=== PATIENT | male | born 1950 ===

== ENCOUNTER 2019-09-16 18:25 | Emergency (ER) | payer MEDICARE, BC ==
[~2019-09-16 18:25] MED LIST: Sodium Chloride 0.9% 1,000 ML IV ONE
[2019-09-16] MEDS: EPINEPHrine 1:10,000 1 MG/10 ML Syringe IVPUSH PRN ×3 (18:46→18:52)
--- NOTE | 2019-09-16 20:34 | EDM.PDOC ---
ED HPI GENERAL MEDICAL PROBLEM - General Chief Complaint: General Stated Complaint: CPR IN PROGRESS Time Seen by Provider: 09/16/19 18:25 - History of Present Illness INITIAL COMMENTS - FREE TEXT/NARRATIVE: Lonnie had spent an unremarkable last couple of days fishing. Today, after pushing his ice house towards the shore, he was witnessed to collapse. CPR was initiated on scene, and ems dispatched to [facility]. The MORRIS was applied and his airway managed with a Hernandez tube confirmed with bilateral chest rise and normal CO2 detection. Five shocks were delivered in route via AED, transport proceeded to the hospital. Upon arrival in ER bay, pupils were fixed and dilated. IO was placed under usual sterile precautions in his left tibia. Bone marrow was aspirated, and this was infiltrated with lidocaine while epi was prepared. Pulse check revealed no shock advised per AED. Hernandez airway was kept in place, given excellent breath sounds bilaterally, and normal capnography waveform. Multiple doses of epi were provided and rhythm remained asystole on the monitor, and at no time was a pulse appreciated via palpation of femoral, and then carotid, palpation. Ultrasound confirmed no cardiac activity and no pericardial effusion/tamponade. No obvious evidence of right ventricular hypertrophy, nor pneumothorax appreciated in consideration of potential treatable causes. All in the room were in agreement that continued efforts were unwarranted, and Lonnie was pronounced . Total bedside time was 30 minutes providing coordination of care, and empathy was provided to his son- in-law Ji, and grandson, Justin. Discussed via telephone with his Sandi and all questions were addressed. - Related Data Home Meds: Home Meds Aspirin 09/17/19 [History] Diltiazem HCl [Diltiazem 12Hr ER] 120 DAILY 09/17/19 [History] Lisinopril [Zestril] 5 DAILY 09/17/19 [History] Metoprolol Succinate [Toprol XL 50mg] 09/17/19 [History] atorvaSTATin [Lipitor] 10 mg PO BEDTIME 09/17/19 [History] metFORMIN [Glucophage] 1,000 DAILY 09/17/19 [History] ED ROS GENERAL - Review of Systems Review Of Systems: Unable To Obtain Reason Not Obtained: cpr in progress ED EXAM, GENERAL - Physical Exam Exam: See Below Exam Limited By: Other (see resuscitation details) General Appearance: Other (moribund ) Head: Atraumatic, Normocephalic Respiratory/Chest: Normal Breath Sounds Cardiovascular: Other (no detectable heart sounds upon auscultation >60 seconds) GI/Abdominal: Other (rotund and not distended) Neurological: Unresponsive Skin Exam: Warm Course - Orders/Labs/Meds Orders: Medication Orders Epinephrine HCl (Epinephrine 1:10,000) 1 mg IVPUSH NOW PRN PRN Reason: Other Last Admin: 09/16/19 18:52 Dose: 1 mg Admin: 09/16/19 18:49 Dose: 1 mg Admin: 09/16/19 18:46 Dose: 1 mg Meds: Medications Generic Name Dose Route Start Last Admin Trade Name Freq PRN Reason Stop Dose Admin Epinephrine HCl 1 mg 09/17/19 17:06 09/16/19 18:52 Epinephrine 1:10,000 IVPUSH 1 mg NOW PRN Administration Other Discontinued Medications Generic Name Dose Route Start Last Admin Trade Name Freq PRN Reason Stop Dose Admin Sodium Chloride 1,000 mls @ 999 mls/hr 09/16/19 17:06 09/16/19 18:45 Normal Saline IV 09/16/19 18:06 999 mls/hr .BOLUS ONE Administration Departure - Departure Time of Disposition: 18:55 Disposition: 20 Preliminary Cause of *Q: Cardiac Arrest Condition: Critical Clinical Impression: MO, Myocardial infarction - Discharge Information Referrals: PCP,None [Primary Care Provider] - Sepsis Event Note - Focused Exam Date Exam was Performed: 09/22/19 Time Exam was Performed: 10:34
[2019-09-17] MEDS ORDERED: EPINEPHrine 1:10,000 1 MG/10 ML Syringe IVPUSH PRN (17:02)
== END 2019-09-16 18:55 | disposition expired ==
LOC: EDBD 18:25 → LB.ED 18:25
DX: I21.9 Acute myocardial infarction, unspecified (principal); Z79.82 Long term (current) use of aspirin; Z79.84 Long term (current) use of oral hypoglycemic drugs; Z79.899 Other long term (current) drug therapy
CPT/HCPCS: 92950; 99285; A0425; A0429; J0171; J7030